=== PATIENT | female | born 1975 | race Caucasian/White ===

== ENCOUNTER 2021-07-22 05:45 | Day surgery (SDC) | payer OTHER ==
[~2021-07-22] VITALS: Ht 170.2 cm; Wt 100.0 kg
--- NOTE | ~2021-07-22 | OR ---
[facility] [address], [place] [address] Draft DATE OF OPERATION: 07/22/2021 SURGEON: Mira Contreras MD CORN SHELLER: Lucius Dolan M.D. PREOPERATIVE DIAGNOSES: Menorrhagia, dysmenorrhea, prior tubal ligation. POSTOPERATIVE DIAGNOSES: Menorrhagia, dysmenorrhea, prior tubal ligation, severe pelvic adhesions, small right ovarian cysts. PROCEDURE: Total laparoscopic hysterectomy, right salpingectomy, right ovarian cyst removal, lysis of adhesions, cystoscopy, cannulation of right ureter. ANESTHESIA: General ET. ESTIMATED BLOOD LOSS: 25 mL. DRAINS: Liao catheter. PACKS: None. INDICATIONS AND FINDINGS: The patient is a 46-year-old female, status post four prior sections. She has been having abnormal bleeding for quite some time. She has also had pelvic pain and dysmenorrhea. She has failed to respond to the pill and the Mirena in the past because of side effects. She has undergone prior tubal ligation. Prior laparoscopy was done, which showed no evidence of endometriosis, there were severe pelvic adhesions. At the time of surgery, exam under anesthesia was normal. At the time of laparoscopy, the uterus was normal other then dense adhesions of the uterus to the bladder area. The left tube was absent. The left ovary was normal. The right tube had prior interruption and the right ovary had a small cyst on it, but was otherwise normal. PATIENT NAME: GEORGE CALHOUN TIFFANIE OPERATIVE REPORT DATE OF : 75 REPORT #: [id number] PHYSICIAN: MIRA CONTRERAS MD PCP: NAYELI HU PA-C REPORT IS CONFIDENTIAL AND NOT TO BE RELEASED WITHOUT AUTHORIZATION [facility] [address], [place] [address] Draft DESCRIPTION OF PROCEDURE: The patient was prepped and draped in the dorsal lithotomy position. A weighted speculum was placed. The anterior lip of the cervix was visualized and grasped with a single-tooth tenaculum. The uterus was sounded to 8 cm. The endocervical canal was then dilated and a VCare cannula placed and the balloon inflated at the fundus. The tenaculum and speculum were removed. The cup was fitted over the cervix and the locking cap was fitted into place. Attention was then directed above. The infraumbilical area was injected with 0.5% Marcaine plain. An incision was made with a knife. Each layer was serially elevated, incised until the fascia was opened and identified. Stay sutures of 0 Vicryl were placed. Following this, the peritoneum was opened sharply. The Reilly cannula was then placed, the balloon inflated and it was tied into place. Placement of the scope confirmed proper positioning. CO2 was then introduced into the abdomen. When the abdomen was appropriately distended, the secondary ports were placed. These areas were transilluminated, injected with Marcaine, incision made with a knife and the trocars placed under direct vision. These were placed laterally just below the level of the umbilicus. The left hand port was a 5 mm port and the right was a Veress needle followed with the expanding port. Following this, the planned procedure appeared appropriate, though again there were dense adhesions of the bladder. The patient's right tube was then removed using the LigaSure Maryland device. The mesosalpinx was serially coagulated and divided and the specimen removed and retrieved through the right port. Attention was directed down to the left side. The utero-ovarian pedicle and round ligament were serially coagulated and divided. The anterior leaf of the peritoneum was then incised in a small amount. The peritoneum was taken down posteriorly as well. The uterine vessels could be seen at this point and were coagulated. There were very dense adhesions anteriorly. Because of this, the decision was made to proceed from the patient's right side, as there were not as dense adhesions on that side. The patient's right utero-ovarian pedicle and round ligament were serially coagulated and divided. The peritoneum anteriorly was taken down as well as the peritoneum posteriorly. The adhesions of the bladder to the anterior uterine wall were then taken down very close to the uterine wall, taking care to avoid the bladder itself. It did take some time, but these adhesions were able to be brought off the anterior uterus and cervix. Attention was redirected to the patient's left side and further dissection was done completing the bladder flap. The peritoneum completed posteriorly as well. The uterine vessels were completely skeletonized, coagulated, and divided. The uterine vessels on the right side were also coagulated multiple times and divided. Further dissection was done posteriorly and anteriorly and the could be felt at that time. The specimen was then removed from the cuff with the Sonicision device. This was started posteriorly and wrapped around to the patient's left and anteriorly and again posteriorly and wrapped around right and anteriorly. Following this, the specimen was retrieved intact vaginally. A glove with a wet lap tape was placed into the vagina allowing for the pneumoperitoneum to re-accumulate. The PATIENT NAME: GEORGE CALHOUN OPERATIVE REPORT DATE OF : 75 REPORT #: [id number] PHYSICIAN: MIRA CONTRERAS MD PCP: NYAELI HU PA-C REPORT IS CONFIDENTIAL AND NOT TO BE RELEASED WITHOUT AUTHORIZATION [facility] [address], [place] [address] Draft abdomen was copiously irrigated and inspected and there were few bleeding points along the anterior bladder flap area, which were controlled with Maryland device. The cuff was then closed using the Endo Stitch. Care was taken to incorporate the vaginal mucosa both posteriorly and anteriorly as well as minimal uptake of the anterior cuff because of the closeness of the bladder. This was run from the patient's right uterosacral ligament to the left and back to the center. At this time, there was a small cyst noted on the right ovary and this was removed using the LigaSure device. The specimen was retrieved and sent for pathology separately. It was almost of fatty consistency, possibly a corpus luteum. The base of this was treated with cautery. The abdomen was again copiously irrigated and inspected and good hemostasis was noted. The pressure was turned down as well and again there was no evidence of any ongoing bleeding. At this point, the instruments were removed from the abdomen after allowing as much CO2 as possible to escape. The fascial incision of the umbilicus was re-identified and closed with running suture of 0 Vicryl. The skin incisions were closed with subcuticular sutures of 3-0 Vicryl Rapide. Attention was directed down below. Lap was removed from the vagina. The Liao catheter was removed and the 30-degree scope introduced for cystoscopy. She had received IV fluorescein. The bladder was filled and there was no evidence of any injury to the bladder. Both ureteral orifices were easily identified. However, there was no egress of urine from either of these. This was observed for quite some time without any urine seen from the ureters. The cystoscope was replaced with a 21-Swedish cysto and a 4 mm whistle-tip was introduced. By this time, the patient's left ureter was freely egressing fluorescein stained urine. The right one had not, however. The ureter was cannulated easily with a whistle-tip. There was no evidence of any obstruction or . When this was removed, there was free spill of the fluorescein stained urine from the patient's right ureter. Following this, the bladder was drained. The Liao catheter replaced. All sponge and needle counts were correct. She was taken to the recovery room in good condition. Mira Contreras MD PJW/MODL /[id number] cc: Lucius Dolan M.D. PATIENT NAME: GEORGE CALHOUN OPERATIVE REPORT DATE OF : 75 REPORT #: [id number] PHYSICIAN: MIRA CONTRERAS MD PCP: NAYELI HU PA-C REPORT IS CONFIDENTIAL AND NOT TO BE RELEASED WITHOUT AUTHORIZATION [facility] [address] [place] [address] [place], [place] [address] Draft Copies: ~ PATIENT NAME: GEORGE CALHOUN TIFFANIE OPERATIVE REPORT DATE OF : 75 REPORT #: [id number] PHYSICIAN: MIRA CONTRERAS MD PCP: NAYELI HU PA-C REPORT IS CONFIDENTIAL AND NOT TO BE RELEASED WITHOUT AUTHORIZATION
[~2021-07-22 05:45] MED LIST: CYMBALTA60 MG PO; FERATE240 MG PO; MOTRIN IB200 MG PO; NAPROSYN500 MG PO; ONDANSETRON ODT8 MG PO; PERCOCET 5-3251 EACH PO; REGLAN10 MG PO; TYLENOL EXTRA500 MG PO
[2021-07-22] MEDS ORDERED: PRENATAL MULTI1 EAC3 PO (06:12)
--- NOTE | 2021-07-22 09:42 | NUR ---
07/22/21 0942 Brittny Lieberman 0919 PT ARRIVED IN PACU NON RESPONSIVE TO NOXIOUS STIMULI WITH OPA IN PLACE. 0935 PT REACTIVE. OPA REMOVED. 0941 OXYGEN REMOVED. SATS 98% ON RA. NO C/O'S. LAGUNA IN PLACE WITH BRIGHT YELLOW URINE PRESENT.
--- NOTE | 2021-07-22 10:23 | NUR ---
1005: PT ARRIVES TO UNIT VIA STRETCHER FROM PACU. AWAKE AND ORIENTED ON ARRIVAL. VSS, RESP EVEN AND UNLABORED ON RA. LAP SITES X3 C/D/I. LAGUNA CATH DRAINS CLEAR YELLOW URINE. PT WITH C/O OF LAGNUA CATH DISCOMFORT. REMOVED AT THIS TIME AND DRAINED FOR 100MLS. NO DRAINAGE NOTED ON UNDERPAD. PT DENIES NAUSEA AND REPORTS NOE PAIN LEVEL, 2/10 AT THIS TIME. ARRIVES AT THE BEDSIDE. POC DISCUSSED AND PT AGREEABLE. LIGHTS DIMMED FOR PT COMFORT. ICE WATER PROVIDED. NO NEEDS VOICED, CALL LIGHT WITHIN REACH
--- NOTE | 2021-07-22 11:11 | NUR ---
1100: PT AWAKE AND ALERT IN STRETCHER WATCHING TV. VSS, RESP EVEN AND UNLABORED. NO CHANGE TO LAP SITES X3 FROM ARRIVAL. DENIES NAUSEA AND REPORTS NOE PAIN LEVEL 3/10. DENIES NEED FOR PAIN INTERVENTION AT THIS TIME. POST ANESTHESIA BODY SHAKING DISCUSSED AND WARM BLANKET PROVIDED. PT COMFORTABLE WITHOUT NEEDS. CALL LIGHT WITHIN REACH
--- NOTE | 2021-07-22 12:22 | NUR ---
1210: PT SCROLLS ON CELLPHONE. VSS, RESP EVEN AND UNLABORED. DENIES NAUSEA AND REPORTS 5/10 PAIN LEVEL. CONTS TO DENY DESIRE FOR PAIN INTERVENTION AT THIS TIME. DRESSINGS REMAIN UNCHANGED FROM ARRIVAL. PT REPORTS CONTD BLADDER SPASMS, DISCUSSED AND PT VOICES UNDERSTANDING. OFFERED HELP TO BR AND PT DECLINES AT THIS TIME. REG LUNCH TRAY ORDERED. NO FURTHER NEEDS VOICED, CALL LIGHT WITHIN REACH
--- NOTE | 2021-07-22 14:13 | NUR ---
1310/ PT WAS ALERT AND ORIENTED. PT EXPRESSED READINESS TO GO HOME. STUDENT NURSE DELFINO ASSISTED PT TO DANGLE AT BEDSIDE. PT DENIES DIZZINESS AND SOB. AMBULATES TO BATHROOM WITH STANDBYE ASSIST FROM STUDENT NURSE. STEADY GATE. SUCCESSFUL POST OP VOID. UNMEASUREABLE. BACK TO STRETCHER. REPORTS PAIN LEVEL 8/10. PT REQUESTS PAIN RX FOR RIDE HOME. ADMINISTERED BY UMER RN ORDERED. SEE PT EMAR. PT TO PREPARE FOR DISCHARGE. 1335/SALINE LOCK REMOVED. CATH INTACT AND PRESSURE APPLIED TO SITE.
--- NOTE | 2021-07-22 14:22 | NUR ---
1340: DC INSTRUCTIONS PROVIDED AND DISCUSSED ORDERED. PT VOICES UNDERSTANDING AND DENIES QUESTIONS AND CONCERNS AT THIS TIME. WHEELED OFF OF UNIT FOR DC. TRANSFERS INTO VEHICLE INDEPENDENTLY AND APPROPRIATELY. NO PHYSICAL S/S OF DISTRESS AT THIS TIME
--- NOTE | 2021-07-23 15:16 | PATH ---
[facility] [address], [place] [address] Signed SPECIMEN(S): A UTERUS, CERVIX, RIGHT FALLOPIAN TUBE SPECIMEN(S): B CYST ON RIGHT OVARY SPECIMEN SOURCE: A. UTERUS, CERVIX, RIGHT FALLOPIAN TUBE B. CYST ON RIGHT OVARY CLINICAL HISTORY: Menorrhagia, dysmenorrhea. TLH/BS. FINAL PATHOLOGIC DIAGNOSIS: A. Uterus and right fallopian tube, hysterectomy and right salpingectomy: - Secretory phase endometrium; no hyperplasia or neoplasia identified. - Cervix with no significant pathologic changes. - Fallopian tube with no significant pathologic changes. B. Ovary, right, cystectomy: - Benign follicular cyst. BRP:cml:C2NR MICROSCOPIC EXAMINATION: Histologic sections of all submitted blocks are examined by light microscopy. These findings, together with the gross examination, support the pathologic diagnosis. GROSS DESCRIPTION: Two specimens are received in two containers, labeled "SM." A. The specimen, labeled "SM, A," and designated on the requisition "cervix, uterus, right fallopian tube," is received in formalin and consists of a uterus (128 gram, 7.2 cm cornu to cornu, 6.9 cm superior to inferior, 4.8 cm anterior to posterior), and attached cervix (3.5 cm in length x 3.3 cm in diameter) with pink-miranda cervical mucosa and slit-shaped os (1.5 x 0.3 cm). Also received is a detached fimbriated fallopian tube segment (6.5 cm in length and ranging in diameter from 0.8-1.2 cm) with multiple paratubal cysts (ranging in size from 0.1-0.2 cm in greatest dimension). The fallopian tube is sectioned to reveal a grossly unremarkable cut surface. The anterior aspect of the cervix is in blue. The uterine serosa is miranda and smooth on the posterior aspect and slightly disrupted (surgically) on the left anterior aspect. Sectioning of the cervix reveals a pink-miranda, wrinkled endocervix (endocervical canal: 3.8 cm in length x PATIENT NAME: GEORGE CALHOUN PATHOLOGY DATE OF : 75 REPORT #: [id number] PHYSICIAN: BRIT RENDON PCP: NAYELI HU PA-C REPORT IS CONFIDENTIAL AND NOT TO BE RELEASED WITHOUT AUTHORIZATION [facility] [address], [place] [address] Signed 0.9 cm in diameter) and multiple mucoid material-filled cysts within the wall of the cervix that measure up to 0.8 cm in greatest dimension. Sectioning of the uterus reveals an endometrial cavity (4.9 cm superior to inferior x 4.0 cm cornu to cornu) with red-pink endometrial lining that measures 0.5 cm in thickness. The myometrium is pink-miranda with no masses or lesions identified. Coffee Farmer sections are submitted as follows: Cassette Summary: (A1) Fallopian tube (A2) Anterior and posterior cervix (A3) Endomyometrium B. The specimen, labeled "SM, B," and designated on the requisition "cyst on right ovary," is received in formalin and consists of four fragments of miranda-brown soft tissue (0.2-0.8 cm in greatest dimension). The specimen is submitted entirely in cassette (B1). AC (under the direct supervision of a pathologist) The Gross Description was prepared using a voice recognition system. The report was reviewed for accuracy; however, sound-alike word errors, addition and/or deletions may occur. If there is any question about this report, please contact Client Services. PERFORMING LABORATORY: The technical component was performed by [facility], [address] [place] [id number] (Retail Supervisor: Joanna Evans MD; CLIA# [id number]).Professional interpretation was performed by [place] [address] (CLIA# [id number]). Diagnostician: Jonny Nieves MD Pathologist Electronically Signed 07/23/2021 Copies: ~ PATIENT NAME: GEORGE CALHOUN PATHOLOGY DATE OF : 75 REPORT #: [id number] PHYSICIAN: BRIT RENDON PCP: NAYELI HU PA-C REPORT IS CONFIDENTIAL AND NOT TO BE RELEASED WITHOUT AUTHORIZATION
== END 2021-07-22 13:40 | disposition home or self-care (01) ==
LOC: DS 05:45
PROVIDERS: ATTEND Obstetrics & Gynecology
PROC: 0UB04ZZ Excision of Right Ovary, Percutaneous Endoscopic Approach (ICD-10-PCS; 2021-07-22)
PROC: 0TJB8ZZ Inspection of Bladder, Via Natural or Artificial Opening Endoscopic (ICD-10-PCS; 2021-07-22)
PROC: 0UT94ZZ Resection of Uterus, Percutaneous Endoscopic Approach (ICD-10-PCS; principal; 2021-07-22 07:30)
PROC: 0UT54ZZ Resection of Right Fallopian Tube, Percutaneous Endoscopic Approach (ICD-10-PCS; 2021-07-22 07:30)
DX: N83.01 Follicular cyst of right ovary (principal); N92.0 Excessive and frequent menstruation with regular cycle; N94.6 Dysmenorrhea, unspecified; N73.6 Female pelvic peritoneal adhesions (postinfective); E66.9 Obesity, unspecified
CPT/HCPCS: J0131; J0694; J1100; J1644; J1885; J2405; J2704; J2765; J3010; J7121